=== PATIENT | female | born 1955 | race Hispanic/Latino ===

== ENCOUNTER → 2018-11-25 | Outpatient (CLI) | payer MEDICARE | END | disposition home or self-care (01) | LOC: RAH 13:11 | PROVIDERS: ATTEND Family Medicine | DX: J44.9 Chronic obstructive pulmonary disease, unspecified (principal); J84.10 Pulmonary fibrosis, unspecified; M47.815 Spondylosis without myelopathy or radiculopathy, thoracolumbar region | CPT/HCPCS: 71250 ==

== ENCOUNTER → 2019-01-25 | Outpatient (CLI) | payer OTHER | END | disposition home or self-care (01) | LOC: RAH 13:51 | PROVIDERS: ATTEND Internal Medicine Cardiovascular Disease | DX: Z13.6 Encounter for screening for cardiovascular disorders (principal) | CPT/HCPCS: 75571 ==

== ENCOUNTER → 2019-11-18 | Outpatient (CLI) | payer MEDICARE | END | disposition home or self-care (01) | LOC: RAH 07:45 | PROVIDERS: ATTEND Family Medicine | DX: R94.5 Abnormal results of liver function studies (principal) | CPT/HCPCS: 76700 ==

== ENCOUNTER 2020-11-28 12:41 | Emergency (ER) | payer MEDICARE ==
[2020-11-28] MEDS ORDERED: KETOROLAC TROMETHAMINE 30MG/ML ONE (13:28)
[2020-11-28] MEDS ORDERED: CYCLOBENZAPRINE HCL 10 MG TABLET ONE (13:28)
[2020-11-28] MEDS ORDERED: HYDROCODONE/ACETAMINOPHEN 10/325 MG TAB ONE (13:29)
[2020-11-28] MEDS ORDERED: DIAZEPAM 5 MG TABLET ONE (13:43)
== END 2020-11-28 13:47 | disposition home or self-care (01) ==
LOC: EDH 12:41
DX: S39.012A Strain of muscle, fascia and tendon of lower back, initial encounter (principal); J44.9 Chronic obstructive pulmonary disease, unspecified; Z88.1 Allergy status to other antibiotic agents; Z88.8 Allergy status to other drugs, medicaments and biological substances; X58.XXXA Exposure to other specified factors, initial encounter; Y93.89 Activity, other specified; Y92.89 Other specified places as the place of occurrence of the external cause; Y99.8 Other external cause status
CPT/HCPCS: 96372; 99283; J1885

== ENCOUNTER → 2020-12-03 | Outpatient (CLI) | payer MEDICARE | END | disposition home or self-care (01) | LOC: RAH 10:47 | PROVIDERS: ATTEND Family Medicine | DX: M51.36 Other intervertebral disc degeneration, lumbar region (principal); M48.061 Spinal stenosis, lumbar region without neurogenic claudication; M54.5 Low back pain | CPT/HCPCS: 72148 ==

== ENCOUNTER 2022-02-19 18:55 | Emergency (ER) | payer MEDICARE ==
[~2022-02-19] VITALS: Ht 157.5 cm; Wt 77.1 kg
[2022-02-19 19:00] VITALS: BP 131/58
[2022-02-19] MEDS ORDERED: DOXY-336 PO (20:28)
[2022-02-19] MEDS ORDERED: DOXYCYCLINE HYCLATE 100 MG TABLET PO SCH (20:30)
[2022-02-19] MEDS ORDERED: DIPHENHYDRAMINE HCL 25 MG CAPSULE PO ONE (20:30)
[2022-02-19] MEDS ORDERED: HYDR-3421 PO (20:32)
[2022-02-19] MEDS ORDERED: DIPHENHYDRAMINE HCL 25 MG CAPSULE ONE (20:34)
[2022-02-19] MEDS ORDERED: DOXYCYCLINE HYCLATE 100 MG TABLET PO ONE (20:37)
[2022-02-22 11:40] LABS: LYME AB FINAL INTERPRETATION SEE SEPARATE REPORT (Negative); LYME IGG/IGM ABS SEE SEPARATE REPORT ISR (.00 - .90)
== END 2022-02-19 20:41 | disposition home or self-care (01) ==
LOC: EDH 18:55
DX: S00.06XA Insect bite (nonvenomous) of scalp, initial encounter (principal); E78.00 Pure hypercholesterolemia, unspecified; J44.9 Chronic obstructive pulmonary disease, unspecified; Z98.890 Other specified postprocedural states; W57.XXXA Bitten or stung by nonvenomous insect and other nonvenomous arthropods, initial encounter; Y93.89 Activity, other specified; Y92.89 Other specified places as the place of occurrence of the external cause; Y99.8 Other external cause status
CPT/HCPCS: 36415; 86618; 99283; Q0163

== ENCOUNTER → 2022-03-19 | Outpatient (CLI) | payer MEDICARE ==
[~2022-03-19] MED LIST: DOXY-336 PO; HYDR-3421 PO
== END | disposition home or self-care (01) ==
LOC: RAH 15:54
PROVIDERS: ATTEND Family Medicine
DX: M25.531 Pain in right wrist (principal)
CPT/HCPCS: 73110

== ENCOUNTER 2023-04-15 10:43 | Observation (INO) | payer OTHER, MEDICARE ==
[~2023-04-15] VITALS: Ht 162.6 cm; Wt 65.8 kg
[~2023-04-15 10:43] MED LIST changes: -DOXY-336 PO; +DOXY-469 PO
[2023-04-15] MEDS ORDERED: KETOROLAC 30MG VIAL (30MG/ML) IVP ONE (13:00)
[2023-04-15] MEDS ORDERED: FAMOTIDINE 20MG VIAL IV ONE (13:00)
[2023-04-15] MEDS ORDERED: METOCLOPRAMIDE 10 MG/2 ML VIAL IVP ONE (13:00)
[2023-04-15] MEDS ORDERED: NITROGLYCERIN 0.4 MG SL TAB SL PRN (15:30)
[2023-04-15] MEDS ORDERED: KCL 20 MEQ ERTAB PO PRN (15:30)
[2023-04-15] MEDS ORDERED: ARTIFICAL TEARS SOL 15 ML OP PRN (15:30)
[2023-04-15] MEDS ORDERED: GLUCAGON 1MG KIT 1 MG ML IM PRN (15:30)
[2023-04-15] MEDS ORDERED: POTASSIUM CHLORIDE 20MEQ/100ML 100 ML IV PRN ×2 (15:30)
[2023-04-15] MEDS ORDERED: POTASSIUM CHLORIDE 10% ELIXIR 20 MEQ/15 ML UDCUP PO PRN (15:30)
[2023-04-15] MEDS ORDERED: DiphenhydrAMINE HCL 50 MG/ML VIAL IV PRN (15:30)
[2023-04-15] MEDS ORDERED: DEXTROSE 50%-WATER 50 ML DISP.SYRIN IV PRN (15:30)
[2023-04-15] MEDS ORDERED: BENZOCAINE/MENTH/CETYLPYRD CL 1 EACH LOZENGE MM PRN (15:30)
[2023-04-15] MEDS ORDERED: GUAIFENESIN-DM 200/20 MG 10 ML PO PRN (15:30)
[2023-04-15] MEDS ORDERED: HYDRALAZINE 25MG TABLET PO PRN (15:30)
[2023-04-15] MEDS ORDERED: GUAIFENESIN SUGAR-FREE 100 MG/5 ML UDCUP PO PRN (15:30)
[2023-04-15] MEDS ORDERED: LOPERAMIDE HCL 2 MG CAP PO PRN (15:30)
[2023-04-15] MEDS ORDERED: POLYETHYLENE GLYCOL 3350 17 GM POWD.PACK PO PRN (15:30)
[2023-04-15] MEDS ORDERED: DIPHENHYDRAMINE HCL 25 MG CAPSULE PO PRN (15:30)
[2023-04-15] MEDS ORDERED: ALBUTEROL 0.083% 2.5 MG/3 ML INH IH PRN (15:30)
[2023-04-15] MEDS ORDERED: ONDANSETRON 4MG INJ IV PRN (15:30)
[2023-04-15] MEDS ORDERED: ACETAMINOPHEN 325 MG TAB PO PRN ×2 (15:30)
[2023-04-15] MEDS ORDERED: DOCUSATE SODIUM 100 MG CAP PO PRN (15:30)
[2023-04-15] MEDS: INSULIN HUMULIN R 100 UNIT/ML 3ML SQ SCH ×2 (16:02→20:52)
[2023-04-15] MEDS ORDERED: 0.9%NACL 1000ML 1,503 ML IV ONE (16:30)
[2023-04-15 16:39] LABS: BASOPHILS % (AUTO) 0.5 % (0.0-5.0); EOSINOPHILS % (AUTO) 5.9 % (0.0-8.0); HEMATOCRIT 34.9 % (36-48); LYMPHOCYTES % (AUTO) 28.4 % (21.0-51.0); MEAN CORPUSCULAR HEMOGLOBIN 28.6 pg (27.0-33.0); MEAN CORPUSCULAR HGB CONC 32.1 g/dL (32.0-36.0); MEAN CORPUSCULAR VOLUME 89.3 fL (79-99); MONOCYTES % (AUTO) 7.6 % (3.0-13.0); NEUTROPHILS % (AUTO) 57.2 % (40.0-77.0); PLATELET COUNT (AUTO) 552 K/uL (130-400); RED BLOOD CELL COUNT(AUTO) 3.91 MIL/uL (4.00-5.50); RED CELL DISTRIBUTION WIDTH 15.5 % (11.0-15.5); WHITE BLOOD COUNT (AUTO) 9.2 K/uL (4.8-10.8)
[2023-04-15 16:52] LABS: INR 0.96 (0.85-1.15); PROTHROMBIN TIME 10.5 SEC (9.6-11.6)
[2023-04-15 16:57] LABS: CREATININE 0.5 mg/dL (0.5-1.5); POTASSIUM 4.6 mmol/L (3.5-5.1)
[2023-04-15 17:01] LABS: ALBUMIN 2.9 g/dL (3.5-5.0); MAGNESIUM 1.7 mg/dL (1.80-2.40); PHOSPHORUS 3.7 mg/dL (2.5-4.9); TOTAL PROTEIN, SERUM 6.9 g/dL (6.0-8.3)
[2023-04-15] MEDS: 0.9%NACL 1000ML 1,000 ML IV SCH (17:07)
[2023-04-15] MEDS: LACTULOSE 20 GM/30 ML UDCUP PO PRN (20:53)
[2023-04-15] MEDS: FAMOTIDINE 20MG VIAL IV SCH (20:54)
[2023-04-15] MEDS: PANTOPRAZOLE 40 MG/VIAL IVP SCH (20:54)
[2023-04-15] MEDS: MORPHINE 2 MG SYG IVP PRN (21:38)
[2023-04-15 21:48] LABS: HEMATOCRIT 32.4 % (36-48)
[2023-04-15 22:00] VITALS: BP 127/51
[2023-04-15] MEDS ORDERED: ACET-2079 PO (22:22)
[2023-04-15] MEDS ORDERED: GABA-529 PO (22:22)
[2023-04-15] MEDS ORDERED: MONT-39 PO (22:22)
[2023-04-15] MEDS ORDERED: DIPH-1242 PO (22:22)
[2023-04-15] MEDS ORDERED: FAMO20TA8 PO (22:22)
[2023-04-16] VITALS: BP 108/54
[2023-04-16] MEDS: ZOLPIDEM TARTRATE 5 MG TAB PO PRN ×2 (01:52→21:40)
[2023-04-16 04:00] VITALS: BP 112/52
[2023-04-16 05:37] LABS: BASOPHILS % (AUTO) 0.7 % (0.0-5.0); EOSINOPHILS % (AUTO) 5.2 % (0.0-8.0); HEMATOCRIT 30.6 % (36-48); LYMPHOCYTES % (AUTO) 34.6 % (21.0-51.0); MEAN CORPUSCULAR HEMOGLOBIN 28.7 pg (27.0-33.0); MEAN CORPUSCULAR VOLUME 89.5 fL (79-99); MONOCYTES % (AUTO) 7.5 % (3.0-13.0); NEUTROPHILS % (AUTO) 51.4 % (40.0-77.0); PLATELET COUNT (AUTO) 540 K/uL (130-400); RED BLOOD CELL COUNT(AUTO) 3.42 MIL/uL (4.00-5.50); RED CELL DISTRIBUTION WIDTH 15.5 % (11.0-15.5); WHITE BLOOD COUNT (AUTO) 8.4 K/uL (4.8-10.8)
[2023-04-16] MEDS: 0.9%NACL 1000ML 1,000 ML IV SCH ×2 (05:50→19:10)
[2023-04-16] MEDS: INSULIN HUMULIN R 100 UNIT/ML 3ML SQ SCH ×3 (05:56→21:00)
[2023-04-16] MEDS: MAGNESIUM 2GM PREMIX 50ML 50 ML IV PRN (06:36)
[2023-04-16 08:00] VITALS: BP 126/59
[2023-04-16 09:03] LABS: HEMATOCRIT 30.7 % (36-48)
[2023-04-16] MEDS: FAMOTIDINE 20MG VIAL IV SCH ×2 (09:36→21:05)
[2023-04-16] MEDS: PANTOPRAZOLE 40 MG/VIAL IVP SCH ×2 (09:36→21:01)
[2023-04-16] MEDS: MORPHINE 2 MG SYG IVP PRN ×4 (09:37→23:31)
[2023-04-16] MEDS ORDERED: HYDROXYZINE 25 MG TABLET PO SCH (11:00)
[2023-04-16] MEDS ORDERED: DIPHENHYDRAMINE HCL 25 MG PO PRN (11:00)
[2023-04-16] MEDS ORDERED: DIPHENHYDRAMINE HCL 25 MG CAPSULE PO PRN (11:00)
[2023-04-16 12:00] VITALS: BP 132/62
[2023-04-16] MEDS: GABAPENTIN 100 MG CAPSULE PO SCH ×2 (14:07→21:02)
[2023-04-16 15:04] LABS: HEMATOCRIT 32.9 % (36-48)
[2023-04-16 16:00] VITALS: BP 134/78
[2023-04-16 20:00] VITALS: BP 132/49
[2023-04-16] MEDS: FAMOTIDINE 20MG TAB PO SCH (21:00)
[2023-04-17] VITALS: BP 113/53
[2023-04-17 04:00] VITALS: BP 145/55
[2023-04-17] MEDS: MORPHINE 2 MG SYG IVP PRN ×4 (04:17→20:41)
[2023-04-17 05:48] LABS: ALBUMIN 2.7 g/dL (3.5-5.0); CREATININE 0.6 mg/dL (0.5-1.5); MAGNESIUM 1.9 mg/dL (1.80-2.40); POTASSIUM 3.6 mmol/L (3.5-5.1); THYROID STIMULATING HORMONE 1.87 uIU/mL (0.36-3.74); TOTAL PROTEIN, SERUM 6.3 g/dL (6.0-8.3)
[2023-04-17] MEDS: INSULIN HUMULIN R 100 UNIT/ML 3ML SQ SCH ×4 (05:57→20:45)
[2023-04-17 08:00] VITALS: BP 130/41
[2023-04-17] MEDS: FAMOTIDINE 20MG VIAL IV SCH ×2 (09:00→20:41)
[2023-04-17] MEDS: FAMOTIDINE 20MG TAB PO SCH ×2 (09:00→20:40)
[2023-04-17] MEDS: MONTELUKAST SODIUM 10 MG TAB PO SCH (09:00)
[2023-04-17] MEDS: GABAPENTIN 100 MG CAPSULE PO SCH ×3 (09:00→20:41)
[2023-04-17] MEDS: PANTOPRAZOLE 40 MG/VIAL IVP SCH ×2 (09:14→20:42)
[2023-04-17] MEDS: 0.9%NACL 1000ML 1,000 ML IV SCH ×2 (09:16→21:50)
[2023-04-17 12:00] VITALS: BP 146/62
[2023-04-17] MEDS: LACTULOSE 20 GM/30 ML UDCUP PO PRN (12:54)
[2023-04-17 15:44] VITALS: BP 123/51
[2023-04-17 20:00] VITALS: BP 141/75
[2023-04-17] MEDS: ZOLPIDEM TARTRATE 5 MG TAB PO PRN (20:41)
[2023-04-18] VITALS: BP 134/69
[2023-04-18] MEDS: 0.9%NACL 1000ML 1,000 ML IV SCH (03:56)
[2023-04-18 04:00] VITALS: BP 139/69
[2023-04-18] MEDS: MORPHINE 2 MG SYG IVP PRN ×2 (04:17→09:00)
[2023-04-18 04:42] LABS: BASOPHILS % (AUTO) 0.8 % (0.0-5.0); EOSINOPHILS % (AUTO) 4.1 % (0.0-8.0); HEMATOCRIT 32.9 % (36-48); LYMPHOCYTES % (AUTO) 32.4 % (21.0-51.0); MEAN CORPUSCULAR HEMOGLOBIN 28.5 pg (27.0-33.0); MEAN CORPUSCULAR HGB CONC 32.8 g/dL (32.0-36.0); MEAN CORPUSCULAR VOLUME 86.8 fL (79-99); MONOCYTES % (AUTO) 7.8 % (3.0-13.0); NEUTROPHILS % (AUTO) 54.5 % (40.0-77.0); PLATELET COUNT (AUTO) 541 K/uL (130-400); RED BLOOD CELL COUNT(AUTO) 3.79 MIL/uL (4.00-5.50); RED CELL DISTRIBUTION WIDTH 15.3 % (11.0-15.5); WHITE BLOOD COUNT (AUTO) 8.5 K/uL (4.8-10.8)
[2023-04-18 04:58] LABS: CREATININE 0.6 mg/dL (0.5-1.5); MAGNESIUM 1.8 mg/dL (1.80-2.40); POTASSIUM 3.7 mmol/L (3.5-5.1); TOTAL PROTEIN, SERUM 6.8 g/dL (6.0-8.3)
[2023-04-18] MEDS: MAGNESIUM 2GM PREMIX 50ML 50 ML IV PRN (05:09)
[2023-04-18] MEDS: INSULIN HUMULIN R 100 UNIT/ML 3ML SQ SCH ×2 (05:19→11:30)
[2023-04-18 08:00] VITALS: BP 148/55
[2023-04-18] MEDS: GABAPENTIN 100 MG CAPSULE PO SCH (08:54)
[2023-04-18] MEDS: FAMOTIDINE 20MG TAB PO SCH (08:54)
[2023-04-18] MEDS: MONTELUKAST SODIUM 10 MG TAB PO SCH (08:54)
[2023-04-18] MEDS: PANTOPRAZOLE 40 MG/VIAL IVP SCH (09:00)
[2023-04-18] MEDS: FAMOTIDINE 20MG VIAL IV SCH (09:00)
[2023-04-18 12:00] VITALS: BP 121/59
== END 2023-04-18 15:00 | disposition home or self-care (01) ==
LOC: EDH 10:43 → EDHIP 15:28 → 3BH 22:20
PROVIDERS: ADMIT Internal Medicine; ATTEND Internal Medicine
DX: N32.1 Vesicointestinal fistula (principal); Z20.822 Contact with and (suspected) exposure to COVID-19; K92.1 Melena; K57.92 Diverticulitis of intestine, part unspecified, without perforation or abscess without bleeding; E86.0 Dehydration; K59.00 Constipation, unspecified; F41.8 Other specified anxiety disorders; J44.9 Chronic obstructive pulmonary disease, unspecified; I10 Essential (primary) hypertension; Z79.899 Other long term (current) drug therapy
CPT/HCPCS: 96374; 96375 ×2; 99284; 83735 ×4; 84100; 80053 ×3; 85025 ×3; 85610; 85730; 85014 ×3; 85018 ×3; 87804 ×2; 83605 ×2; 36415 ×4; 87635; 96376 ×3; 87040 ×2; 82948 ×7; 71045; 96361 ×2; 84443; 85378; 74430; 78582; G0378 ×69; J3490 ×5; J2270 ×11; J2405; J1885; J2765; J3475 ×2; C9113 ×4; A9540; A9558